=== PATIENT | male | born 1975 | race Two or more races ===

== ENCOUNTER 2021-05-29 15:57 | Emergency (ER) | payer SELFPAY ==
[~2021-05-29] VITALS: Ht 172.7 cm; Wt 109.0 kg
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
[2021-05-29] MEDS ORDERED: PRED-220 PO (19:09)
[2021-05-29] MEDS ORDERED: IBUP-1007 PO (19:09)
[2021-05-29] MEDS ORDERED: predniSONE 10 MG TABLET PO ONE (19:15)
[2021-05-29] MEDS ORDERED: IBUPROFEN 200 MG TABLET. PO ONE (19:15)
[2021-05-29 19:57] VITALS: BP 124/76
== END 2021-05-29 20:02 | disposition home or self-care (01) ==
LOC: ER 15:57
DX: G56.03 Carpal tunnel syndrome, bilateral upper limbs (principal)
CPT/HCPCS: 29125; 99283; J7512